=== PATIENT | male | born 2000 | race Caucasian/White ===

== ENCOUNTER → 2020-03-04 09:03 | Outpatient (CLI) | payer OTHER, SELFPAY ==
[2020-03-04 09:52] LABS: Absolute Lymphocyte Count 1.42 X10^3/uL (0.83-4.51); Basophil# 0.05 X10^3/uL; Basophil% 1.3 % (0-1); Eosinophil# 0.04 X10^3/uL; Hematocrit 42.5 % (40-54); Hemoglobin 14.4 g/dL (13.0-16.5); Lymphocyte # 1.42 X10^3/ul (4.0); Lymphocyte % 35.6 % (19-41); Mean Corp Hgb Conc 33.9 g/dL (32-36); Mean Corpuscular Hgb 28.7 pg (27.0-32.0); Mean Corpuscular Volume 84.8 fL (80-94); Mean Platelet Vol. 9.4 fl (6.2-12.0); Monocyte# 0.48 X10^3/uL; NRBC Flagged by Analyzer 0 % (0-5); Neutrophil # 1.99 X10^3/uL (2.7-7.7); Neutrophil % 49.8 % (47-70); Platelet Count 290 K/mm3 (150-450); RBC Distribution Width CV 11.6 % (11.6-14.6); RBC Distribution Width SD 35.8 fl (35.1-43.9); Red Blood Count 5.01 M/mm3 (4.6-6.2)
[2020-03-04 10:31] LABS: ALB/GLOB Ratio 1.4 RATIO (0.9-2.4); AST(SGOT) 18 U/L (15-37); Alanine Aminotransfer ALT/SGPT 25 U/L (16-61); Albumin, Serum 4.2 g/dL (3.2-5.0); Alkaline Phosphatase 67 U/L (45-117); Anion Gap 5 (5-15); BUN 8 mg/dL (7-18); BUN/Creat Ratio 8.9 RATIO (10-20); Chloride 107 mmol/L (98-107); EST Glomerular Filtration Rate 115 mL/min (>60); Est Glom Filt Rate - Afr Amer 139 mL/min (>60); Globulin 3.1 g/dL (2.2-4.2); Glucose 83 mg/dL (74-106); Potassium 3.6 mmol/L (3.5-5.1); Protein, Total 7.3 g/dL (6.4-8.2); Sodium Level 141 mmol/L (136-145)
== END ==
PROVIDERS: PCP Family Medicine; Referring Provider Family Medicine; Visit Provider Family Medicine
DX: R11.0 Nausea (principal); F41.9 Anxiety disorder, unspecified
CPT/HCPCS: 36415; 80053; 84443; 85025

== ENCOUNTER → 2023-02-03 | Outpatient (CLI) | payer OTHER, SELFPAY ==
[2023-02-03 17:32] LABS: Absolute Lymphocyte Count 1.39 X10^3/uL (0.83-4.51); Absolute Neutrophil Count 2.7 X10^3/uL (2.0-7.7); Basophil# 0.05 X10^3/uL; Basophil% 1.1 % (0-1); Eosinophil# 0.04 X10^3/uL; Eosinophils% 0.8 % (0-5); Hemoglobin 15.2 g/dL (13.0-16.5); Lymphocyte # 1.39 X10^3/ul (0.83-4.51); Lymphocyte % 29.5 % (19-41); Mean Corpuscular Hgb 28.7 pg (27.0-32.0); Mean Corpuscular Volume 86.8 fL (80-94); Mean Platelet Vol. 9.6 fl (6.2-12.0); Monocyte# 0.47 X10^3/uL; NRBC Flagged by Analyzer 0 % (0-5); Neutrophil # 2.74 X10^3/uL (2.7-7.7); Neutrophil % 58.2 % (47-70); Platelet Count 300 K/mm3 (150-450); RBC Distribution Width CV 11.7 % (11.6-14.6); RBC Distribution Width SD 37.3 fl (35.1-43.9); White Blood Count 4.7 K/mm3 (4.4-11.0)
[2023-02-03 17:54] LABS: Vitamin B12 264 pg/mL (211-911); Vitamin D,25 Hydroxy 46.4 ng/mL
[2023-02-03 18:06] LABS: ALB/GLOB Ratio 1.3 RATIO (0.9-2.4); AST(SGOT) 17 U/L (15-37); Alanine Aminotransfer ALT/SGPT 23 U/L (16-61); Albumin, Serum 4.5 g/dL (3.2-5.0); Alkaline Phosphatase 70 U/L (45-117); Anion Gap 6 (5-15); BUN 11 mg/dL (7-18); BUN/Creat Ratio 11.2 RATIO (10-20); Calcium,Total 9.3 mg/dL (8.5-10.1); Chloride 107 mmol/L (98-107); Creatinine, Serum 0.98 mg/dL (0.70-1.30); EST Glomerular Filtration Rate 101 mL/min (>60); Est Glom Filt Rate - Afr Amer 122 mL/min (>60); Globulin 3.4 g/dL (2.2-4.2); Glucose 99 mg/dL (74-106); Magnesium 2.2 mg/dL (1.6-2.6); Potassium 3.7 mmol/L (3.5-5.1); Protein, Total 7.9 g/dL (6.4-8.2); Sodium Level 140 mmol/L (136-145); Thyroid Stim Hormone (TSH) 1.58 uIU/mL (0.358-3.74)
== END | disposition home or self-care (01) ==
LOC: MFPLAB 16:57
PROVIDERS: PCP Family Medicine; Visit Provider Family Medicine
DX: R45.89 Other symptoms and signs involving emotional state (principal)
CPT/HCPCS: 36415; 80053; 82306; 82607; 83735; 84443; 85025

== ENCOUNTER → 2023-03-09 | Outpatient (CLI) | payer OTHER, SELFPAY ==
[2023-03-09 16:02] LABS: Vitamin B12 562 pg/mL (211-911)
[2023-03-09 16:54] LABS: Ferritin 81 ng/mL (26-388)
== END | disposition home or self-care (01) ==
LOC: MTLAB 11:24
PROVIDERS: PCP Family Medicine; Referring Provider Family Medicine; Visit Provider Family Medicine
DX: E53.8 Deficiency of other specified B group vitamins (principal); R45.89 Other symptoms and signs involving emotional state
CPT/HCPCS: 36415; 82607; 82728; 82746

== ENCOUNTER → 2024-05-10 | Outpatient (CLI) | payer OTHER, SELFPAY ==
[2024-05-10 10:38] LABS: Absolute Lymphocyte Count 2.15 X10^3/uL (0.83-4.51); Absolute Neutrophil Count 2.3 X10^3/uL (2.0-7.7); Basophil# 0.04 X10^3/uL; Basophil% 0.8 % (0-1); Eosinophil# 0.06 X10^3/uL; Eosinophils% 1.2 % (0-5); Hematocrit 43.6 % (40-54); Hemoglobin 14.3 g/dL (13.0-16.5); Lymphocyte # 2.15 X10^3/ul (0.83-4.51); Lymphocyte % 42.5 % (19-41); Mean Corp Hgb Conc 32.8 g/dL (32-36); Mean Corpuscular Hgb 28.7 pg (27.0-32.0); Mean Corpuscular Volume 87.6 fL (80-94); Mean Platelet Vol. 9.9 fl (6.2-12.0); Monocyte# 0.52 X10^3/uL; Monocyte% 10.3 % (0-10); NRBC Flagged by Analyzer 0 % (0-5); Neutrophil # 2.27 X10^3/uL (2.7-7.7); Neutrophil % 44.8 % (47-70); Platelet Count 270 K/mm3 (150-450); RBC Distribution Width CV 12.2 % (11.6-14.6); Red Blood Count 4.98 M/mm3 (4.6-6.2); White Blood Count 5.1 K/mm3 (4.4-11.0)
[2024-05-10 11:05] LABS: Vitamin B12 512 pg/mL (211-911); Vitamin D,25 Hydroxy 106.5 ng/mL
[2024-05-10 11:22] LABS: ALB/GLOB Ratio 1.2 RATIO (0.9-2.4); AST(SGOT) 24 U/L (15-37); Alanine Aminotransfer ALT/SGPT 44 U/L (16-61); Alkaline Phosphatase 78 U/L (45-117); Anion Gap 5 (5-15); BUN 12 mg/dL (7-18); Chloride 108 mmol/L (98-107); EST Glomerular Filtration Rate 97 mL/min (>60); Est Glom Filt Rate - Afr Amer 118 mL/min (>60); Globulin 3.2 g/dL (2.2-4.2); Glucose 82 mg/dL (74-106); Magnesium 1.9 mg/dL (1.6-2.6); Potassium 3.8 mmol/L (3.5-5.1); Protein, Total 7.2 g/dL (6.4-8.2); Sodium Level 139 mmol/L (136-145)
== END | disposition home or self-care (01) ==
LOC: MFPLAB 08:03
PROVIDERS: PCP Family Medicine; Visit Provider Family Medicine
DX: R53.83 Other fatigue (principal); E53.8 Deficiency of other specified B group vitamins; F41.9 Anxiety disorder, unspecified; R79.89 Other specified abnormal findings of blood chemistry
CPT/HCPCS: 36415; 80053; 82306; 82607; 83735; 84443; 85025

== ENCOUNTER → 2025-05-14 | Outpatient (CLI) | payer OTHER, SELFPAY ==
[2025-05-14 13:23] LABS: Vitamin D,25 Hydroxy 120.0 ng/mL (30-100)
== END | disposition home or self-care (01) ==
LOC: MFPLAB 09:59
PROVIDERS: PCP Family Medicine; Visit Provider Family Medicine
DX: E67.3 Hypervitaminosis D (principal)
CPT/HCPCS: 36415; 82306